=== PATIENT | male | born 1975 | race Caucasian/White ===

== ENCOUNTER 2024-07-14 07:49 | Emergency (ER) | payer MEDICARE, MEDICAID, SELFPAY ==
[2024-07-14] VITALS (8 sets, daily range): BP systolic 119–166; BP diastolic 78–109; PULSE 60–72; RESP 12–19; TEMP 36.6–36.7; O2SAT 94–99; BMI 38.7
--- NOTE | 2024-07-14 07:48 | ECG_ITS ---
APPROVED REPORT Exam: Resting ECG HR:62 bpm ECG Measurements Heart Rate 62 AXES MS 181 P 12 QRSd 97 QRS 88 QT 369 T 44 QTc 374 Conclusion SINUS RHYTHM NORMAL ECG UNCONFIRMED REPORT Electronically signed by : JACOBO DALLAS, 07/15/2024 02:22:46
--- NOTE | 2024-07-14 08:10 | [facility].EDCP ---
Discharge Plan Disposition Patient Disposition: Home, Self-Care Prescriptions Prescriptions: New ondansetron 4 mg tablet,disintegrating 4 mg PO Q6H PRN (Reason: nausea and vomiting) Qty: 10 0RF Referrals Follow up/Referrals: Ankita Lugo APRN [Primary Care Provider] - See instructions Activity Restrictions/Add. Instructions Additional Instructions/Restrictions: Call your family doctor to establish care for this visit to the emergency department and schedule follow-up within 48 hours to ensure improvement. If you have any worsening of your condition or any other concerning signs or symptoms, return to the emergency department or your primary care doctor for further evaluation. Clinical Impressions Clinical Impression: Epigastric abdominal pain Print Language Print Language: Indonesian Discharge ED Provider: Jeromy Bejarano General Chief Complaint: Chest Pain Stated Complaint: chest pain Time Seen by Provider: 07/14/24 07:52 Mode of Arrival: EMS Source of Information: Patient and EMS Description of Symptoms (Recalled from ER Triage Doc. by RN): Pt states he woke up this morning with epigastric pain radiating into his left chest. Pt states he had diarrhea and vomited and had some relief but felt light headed. Pt denies any cardiac hx. EKG normal per EMS. History of Present Illness HPI narrative: Please note that above description of symptoms, in this electronic medical record under categorization of recalled from ER triage doctor by RN are reflective of an initial nursing assessment, however, is not reflective of my full history and physical exam that was personally taken and clarified. Consequentially, this preceding description of symptoms, which may include the patient's categorized chief complaint in the EMR, do not reflect my personal clinical impression, and the ultimate description of history of present illness and patient stated complaints should be deferred to this section of the note. Unless stated otherwise or congruent with this section of the note, additional signs, symptoms, or incongruence should be interpreted as inaccurate with my clinical impression. Related Data Previous Rx's ?Medication ?Instructions ?Recorded ondansetron 4 mg disintegrating 4 mg PO Q6H PRN nausea and 07/14/24 tablet vomiting #10 tabs Allergies Allergy/AdvReac Type Severity Reaction Status Date / Time amoxicillin Allergy Blister Verified 07/14/24 08:11 [facility] Disclaimer: The information contained in this section may have been updated after the patient was seen, as this information can be updated by other users. Social History Smoking Status: Current every day smoker alcohol intake: current current occupational status: employed Travel in the last 8 weeks?: None ROS Obtained: Yes All systems reviewed & no additional complaints except as documented Physical Exam General General appearance: alert, in no apparent distress and obese Head Head exam: atraumatic and normocephalic Eye Eye exam: Present normal appearance, PERRL and EOMI Neck Neck exam: Present normal inspection, full ROM and trachea midline Chest Chest inspection: Present normal inspection and symmetric chest wall rise Respiratory Respiratory exam: Absent respiratory distress, wheezes, stridor, accessory muscle use or prolonged expiratory phase Cardiovascular Cardiovascular exam: Present regular rate, normal rhythm and other (Pulses equal symmetric in upper and lower extremities) Abdominal Exam Abdominal exam: Present soft and tenderness; Absent distention, guarding, rebound, rigidity or pulsatile mass Abdominal tenderness: Present epigastrium and mild Extremities Exam Extremities exam: Absent edema Neurological Exam Neurological exam: Present alert, oriented X3 and CN II-XII intact; Absent motor sensory deficit Skin Skin exam: Present warm and dry; Absent diaphoresis or erythema HEART Score HEART Score HEART Score assessment performed?: Yes HEART Score: 2 Procedures Limited Ultrasound Indication:: Limited RUQ ultrasound Indication: Epigastric pain, Identified structures: -Gallbladder -Gallbladder wall -Common bile duct -Liver Findings: Sonographic Garcia sign: Absent Gallstones: Present x 1 Sludge: Absent Pericholecystic fluid: Absent Maximal GB wall thickness (mm) (normal is </= 3mm): Normal Common bile duct width (mm) (normal is </= 6mm): Too small to visualize Gallbladder width (cm) (normal is < 4cm): Normal Gallbladder length (cm) (normal is < 10cm): Normal Impression: Cholelithiasis without secondary findings of cholecystitis Images were saved to permanent archive The study was technically adequate CPT 48667-30 This study was performed by me, and I personally interpreted all images/videos. Based on my clinical judgement, these images were adequate and did not necessitate further imaging. Critical Care Critical Care Time Critical Care Time: No Medical Decision Making Medical Records Medical records reviewed: Yes I reviewed the patient's medical records. Bean Inquiry Pt receiving controlled substance: No Bean was queried for this patient: No Vital Signs Vital Signs: 07/14/24 07:55 07/14/24 08:10 07/14/24 08:23 Temperature 97.9 F Temperature Source Oral Pulse Rate 63 61 Pulse Rate [Left] 65 Respiratory Rate 16 14 12 Blood Pressure 164/94 H 164/94 H Blood Pressure [Right Arm] 142/103 H Blood Pressure Mean [Right Arm] 116 Blood Pressure Source Automatic Cuff Blood Pressure Source [Right Arm] Automatic Cuff Blood Pressure Position Sitting Blood Pressure Position [Right Arm] Sitting 02 Sat by Pulse Oximetry 98 98 99 Oxygen Delivery Method Room Air Room Air Room Air 07/14/24 08:30 07/14/24 09:00 07/14/24 09:30 Temperature Temperature Source Pulse Rate 65 72 60 Pulse Rate [Left] Respiratory Rate 14 17 14 Blood Pressure 151/109 H 119/78 162/98 H Blood Pressure [Right Arm] Blood Pressure Mean [Right Arm] Blood Pressure Source Blood Pressure Source [Right Arm] Blood Pressure Position Blood Pressure Position [Right Arm] 02 Sat by Pulse Oximetry 98 94 L 96 Oxygen Delivery Method Room Air Room Air Room Air 07/14/24 10:00 07/14/24 10:55 Temperature 98.0 F Temperature Source Oral Pulse Rate 71 72 Pulse Rate [Left] Respiratory Rate 19 16 Blood Pressure 166/103 H 138/79 Blood Pressure [Right Arm] Blood Pressure Mean [Right Arm] Blood Pressure Source Automatic Cuff Blood Pressure Source [Right Arm] Blood Pressure Position Sitting Blood Pressure Position [Right Arm] 02 Sat by Pulse Oximetry 98 Oxygen Delivery Method Room Air Room Air Lab Data Labs: Lab Results 07/14/24 08:12: WBC 9.2, RBC 5.41, Hgb 16.8, Hct 49.6, MCV 91.7, MCH 31.1, MCHC 33.9, RDW 12.2, Plt Count 263, MPV 10.5 H, Neut % (Auto) 69.6, Lymph % (Auto) 20.9, [place] % (Auto) 7.8, Eos % (Auto) 0.9, Baso % (Auto) 0.6, Neut # (Auto) 6.4, Lymph # (Auto) 1.9, [place] # (Auto) 0.7, Eos # (Auto) 0.1, Baso # (Auto) 0.1, PT 11.3, INR 1.02, APTT 24.5, Sodium 142, Potassium 4.4, Chloride 106, Carbon Dioxide 27, Anion Gap 13.4, BUN 23 H, Creatinine 1.30 H, Estimated Creat Clear 109, Estimated GFR 59, Est GFR ( Amer) 72, Glucose 93, Calcium 9.4, Total Bilirubin 0.6, AST 35, ALT 37, Alkaline Phosphatase 60, Troponin I < 0.01, Total Protein 8.5 H, Albumin 5.0, Globulin 3.5 H, Albumin/Globulin Ratio 1.4, Lipase 187, HCV Ab DANNY w/Rflx PCR Qn Negative, HIV Ag/Ab Combo Qual Negative 07/14/24 10:00: Troponin I < 0.01 07/14/24 08:12 07/14/24 08:12 Response Orders (Tests/Meds): ED MEDICATIONS Discontinued Medications Generic Name Dose Route Start Last Admin Trade Name Kevinq PRN Reason Stop Dose Admin Aspirin 324 mg 07/14/24 07:47 07/14/24 08:12 Aspirin 81mg Chewable Tablet PO 07/14/24 07:48 324 mg ONCE ONE Administration Lactated Ringer's 1,000 mls @ 999 mls/hr 07/14/24 07:57 07/14/24 08:14 Lactated Ringer's 1000 Ml Bag IV 07/14/24 08:57 999 mls/hr .Q1H1M ONE Administration Ondansetron HCl 4 mg 07/14/24 07:57 07/14/24 08:12 Ondansetron 4mg/2ml Vial IV 07/14/24 07:58 4 mg ONCE ONE Administration ORDERS Category Date Time Status POCUS Point of Care (ER Only) Stat Exams 07/14/24 07:50 Completed Complete Blood Count Auto Diff Stat Lab 07/14/24 08:12 Completed Comprehensive Metabolic Panel Stat Lab 07/14/24 08:12 Completed HIV Combo Stat Lab 07/14/24 08:12 Completed Hepatitis C Ab Qual. W/ RFX Stat Lab 07/14/24 08:12 Completed Lipase Stat Lab 07/14/24 08:12 Completed PT INR [Prothrombin Time INR] Stat Lab 07/14/24 08:12 Completed PTT [Activated Partial Thrombo Time] Stat Lab 07/14/24 08:12 Completed Troponin I Q3H Lab 07/14/24 10:00 Completed Troponin I Q3H Lab 07/14/24 14:00 Ordered Troponin I Stat Lab 07/14/24 08:12 Completed MDM Narrative Medical Decision Narrative: 48-year-old male presenting with epigastric abdominal pain. History of hypertension, diabetes, anxiety, depression. Currently on injection GLP-1. He states that it started today. Just before arrival, he states that he felt like he needed to go the bathroom, had a bowel movement, started vomiting. No blood in his vomit or stool. Having severe epigastric pain since that time. Was diaphoretic, thought he was having an [place], called EMS. On EMS arrival, patient was diaphoretic, glucose was normal. Twelve-lead was unremarkable, so brought him to the emergency department. Patient declining meds with EMS. On arrival, patient states that he is not currently having symptoms other than epigastric cramping and nausea. Intermittently retching on exam. Epigastric pain does not radiate, no fevers or chills, epigastric pain does not radiate, no fevers or chills, no urinary symptoms, no abdominal surgical history. History was obtained via conversation with patient and EMS. On arrival, patient hemodynamically stable, alert, oriented x4, appropriate, GCS 15, moving all extremities spontaneously, pupils equal and reactive to light. Full physical exam performed and significant for very well-appearing male no acute distress. Speaking in full sentences. Hemodynamically stable, hypertensive mildly, cardiac exam without murmurs gallops or rubs. No lower extremity edema. Pulses equal and symmetric in upper and lower extremities. Neurologically intact and ambulatory. Abdomen is soft, nondistended, but tender mildly in his epigastrium to deep palpation. Garcia sign McBurney's point tenderness negative. No periumbilical bruising, outward signs of abnormality, flank tenderness. Differential includes gastritis, gastroparesis, PUD, duodenitis, cholecystitis, ACS, [place], bowel perforation, pancreatitis, among others. Patient was given aspirin, Zofran for symptomatic management and correction of underlying abnormalities. Patient placed on continuous cardiac monitoring and continuous pulse ox with initial blood pressure 142/103, heart rate 65, saturation 98% on room air. Independent interpretation of EKG shows sinus rhythm 62 bpm with [place] 181, QRS 97, QTc 374. Normal axis no acute ischemic changes. Workup independently interpreted and significant for nonactionable hematologic labs, negative lipase and troponin. Repeat evaluation, patient states he is currently having no symptoms around 9 AM. Bedside [id number] ultrasound performed and patient does have 1 gallstone, but no secondary signs of cholecystitis. CT of the abdomen pelvis was considered, but patient having absolutely no symptoms on reevaluation, no tenderness on my exam, and very clinically well. I feel unlikely to be acute surgical abnormality in the belly. Patient was placed in observation beginning at 9 AM in order to rule out evolving [place] with delta troponins and determine need for admission versus home-going. The patient was provided meds/serial exams/monitoring while awaiting results. Independent interpretation of results demonstrated negative delta troponin. On reevaluation, patient still resting comfortably and states he is ready to go home with Zofran. At this time, I feel patient is appropriate for discharge. Total observation time 2 and half hours. 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 Electronic cow puncher of the spoken language may permit errors. Although I have reviewed the note, some errors may still exist.
[2024-07-14] MEDS: ONDANSETRON 4MG/2ML VIAL 4 MG IV (08:12)
[2024-07-14] MEDS: ASPIRIN 81MG CHEWABLE TABLET 324 MG PO (08:12)
[2024-07-14] MEDS: LACTATED RINGERS 1000ML 1,000 ML 999 ML IV (08:14)
[2024-07-14 08:31] LABS: Basophils # 0.1 K/mm3 (0-0.2); Basophils % 0.6 % (0.1-2.0); Eosinophils # 0.1 Kmm3 (0.0-0.4); Eosinophils % 0.9 % (0.1-12.0); Hematocrit 49.6 % (42.0-52.0); Hemoglobin 16.8 g/dL (14.1-18.0); Immature Granulocytes # 0.02 10^3uL; Immature Granulocytes % 0.2 %; Lymphocytes # 1.9 K/mm3 (0.7-4.5); Lymphocytes % 20.9 % (10-50); Mean Corpuscular HGB Conc 33.9 g/dL (31.8-35.4); Mean Corpuscular Hemoglobin 31.1 pg (27.0-31.2); Mean Corpuscular Volume 91.7 fl (80-94); Mean Platelet Volume 10.5 fl (7.4-10.4); Monocytes # 0.7 K/mm3 (0.1-1.0); Monocytes % 7.8 % (1.7-9.3); Neutrophils # 6.4 K/mm3 (1.8-7.8); Neutrophils % 69.6 % (37.0-80.0); Nucleated Red Blood Cells # 0 10^3/uL; Nucleated Red Blood Cells % 0 %; Platelet Count 263 K/mm3 (142-424); Red Blood Count 5.41 M/mm3 (4.60-6.20); Red Cell Distribution Width 12.2 % (11.5-17.5); Red Cell Distribution Width-SD 41.2 fL; White Blood Count 9.2 K/mm3 (4.8-10.8)
[2024-07-14 08:34] LABS: Alanine Aminotransferase 37 U/L (12-78); Albumin/Globulin Ratio 1.4 (1.1-1.8); Alkaline Phosphatase 60 U/L (38-126); Anion Gap 13.4 mEq/L (5-15); Aspartate Amino Transferase 35 U/L (17-59); Bilirubin,Total 0.6 mg/dl (0.2-1.3); Blood Urea Nitrogen 23 mg/dl (9-20); Calcium 9.4 mg/dl (8.4-10.2); Carbon Dioxide 27 mmol/L (22.0-30.0); Chloride 106 mmol/L (98-107); Creatinine Clearance Estimated 109 mL/min (50-200); Estimated Glomerular Filt Rate 59 ml/min (>60); GFR (African American) 72 ML/MIN (>60); Globulin 3.5 g/dL (1.3-3.2); Glucose 93 mg/dl (74-100); Lipase 187 U/L (23-300); Potassium 4.4 mmoL/L (3.5-5.1); Sodium 142 mmol/L (136-145); Total Protein,Serum 8.5 g/dl (6.3-8.2)
[2024-07-14 08:39] LABS: Activated Partial Thrombo Time 24.5 seconds (22.8-30.6)
[2024-07-14 08:46] LABS: Troponin I < 0.01 ng/ml (0.00-0.034)
[2024-07-14 08:49] LABS: INR 1.02 (0.9-1.1); Prothrombin Time 11.3 seconds (10.1-12.5)
--- NOTE | 2024-07-14 10:03 | PC.NURSE ---
lab notified of second trop being sent up at this time
--- NOTE | 2024-07-14 10:03 | PC.NURSE ---
repeat trop sent to lab
[2024-07-14 10:32] LABS: Troponin I < 0.01 ng/ml (0.00-0.034)
[2024-07-14 11:30] LABS: Hepatitis C Ab Qual. W/ RFX NEGATIVE (Negative)
[2024-07-14 11:53] LABS: HIV Combo NEGATIVE (Negative)
== END 2024-07-14 10:57 | disposition home or self-care (01) ==
PROVIDERS: Emergency Provider Emergency Medicine; PCP Nurse Practitioner
DX: R10.13 Epigastric pain (principal); R11.2 Nausea with vomiting, unspecified; R19.7 Diarrhea, unspecified; F17.210 Nicotine dependence, cigarettes, uncomplicated; Z11.59 Encounter for screening for other viral diseases; Z11.4 Encounter for screening for human immunodeficiency virus [HIV]
CPT/HCPCS: 80053; 83690; 84484; 85025; 85610; 85730; 86803; 87389; 93005; 96361; 96374; 99285; J2405; J7120